=== PATIENT | male | born 1955 | race Two or more races ===

== ENCOUNTER 2019-03-31 16:00 | Emergency (ER) | payer MEDICARE, OTHER ==
[~2019-03-31] VITALS: Ht 175.3 cm; Wt 63.5 kg
--- NOTE | 2019-03-31 16:42 | Emergency Room Report ---
History of Present Illness General Chief Complaint: Hypertension Source: Patient, Medical Record, EMS, Caregiver Present Illness HPI Patient sent in for high blood pressure. He's unable to tolerate medications that have been given to him so far. He states that his blood pressure is high when he gets increased back pain. He states that when he has Valium to help him with muscle spasms that this brings his blood pressure down without difficulty. He denies any fevers, chills, headache, chest pain, nausea, vomiting, diarrhea or dysuria. He does have chronic back pain and feels muscle spasms at this time. He's also unable to tolerate Flexeril. He says the pain in his back is more muscle spasms. He rates the pain to me at 5-7/10. He said that the pain is not radiating down his legs. He denies any increased numbness or weakness. He has a wedge compression fracture in his lumbar spine. Allergies: Coded Allergies: No Known Allergies (Unverified , 03/31/19) Patient History Past Medical History: see triage record Social History: Denies: smoking, alcohol use, drug use Social History Narrative assisted care - has someone with POA Reviewed Nursing Documentation: PMH: Agreed; PSxH: Agreed Nursing Documentation-PMH Past Medical History: No History, Except For Hx Hypertension: Yes - MUSCLE WEAKNESS, Review of Systems All Other Systems: negative except mentioned in HPI Physical Exam Vital Signs Date Time Temp Pulse Resp B/P (MAP) Pulse Ox O2 Delivery O2 Flow Rate FiO2 03/31/19 16:01 98.2 70 20 196/102 (133) 96 Room Air Sp02 EP Interpretation: reviewed, normal General Appearance: alert, GCS 15, non-toxic, mild distress Head: normocephalic, atraumatic Eyes: bilateral eye normal inspection, bilateral eye PERRL ENT: moist mucus membranes Neck: full range of motion - No increased pain in his back with moving his neck , supple Respiratory: lungs clear, normal breath sounds Cardiovascular #1: regular rate, rhythm Cardiovascular #2: 2+ radial (R) Gastrointestinal: normal inspection, normal bowel sounds, non tender, no mass, non-distended Musculoskeletal: gait/station normal, normal range of motion, tender - Lumbar with muscle spasms Neurologic: alert, oriented x3, motor strength/tone normal, DTRs symmetric, sensory intact, speech normal Psychiatric: anxious Reflexes: 2+ knee (R), 2+ knee (L); 1+ ankle (R), 1+ ankle (L) Skin: normal inspection, warm/dry Medical Decision Making Diagnostic Impression: Primary Impression: Labile hypertension Additional Impressions: Exacerbation of chronic back pain Muscle spasm Anxiety with somatization ER Course Patient presents with hypertension. He feels this is related to increased spasms in his back. He'll be evaluated with EKG, chest x-ray and labs. He'll be treated with Ativan and we will follow his blood pressure at this time. EKG without injury. Chest x-ray unremarkable. Labs significant for positive opiates. Patient requesting Valium after Ativan 3 mg total. Still hypertensive. Consider analgesia. Patient sleeping at 20:08 - BP 167/95. Presented to [place]. Considering observation. BP 120/78. Notified Dr. Tamez. Discussed with Dr. Li. She feels patient is able to return to Assisted Living. Patient stable for outpatient observation and treatment. Laboratory Tests Test 03/31/19 17:00 White Blood Count 6.1 K/UL (4.8-10.8) Red Blood Count 5.39 M/UL (4.70-6.10) Hemoglobin 15.6 G/DL (14.2-18.0) Hematocrit 45.9 % (42.0-52.0) Mean Corpuscular Volume 85 FL (80-99) Mean Corpuscular Hemoglobin 28.9 PG (27.0-31.0) Mean Corpuscular Hemoglobin Concent 34.0 G/DL (32.0-36.0) Red Cell Distribution Width 11.6 % (11.6-14.8) Platelet Count 203 K/UL (150-450) Mean Platelet Volume 6.8 FL (6.5-10.1) Neutrophils (%) (Auto) 63.8 % (45.0-75.0) Lymphocytes (%) (Auto) 24.0 % (20.0-45.0) Monocytes (%) (Auto) 7.9 % (1.0-10.0) Eosinophils (%) (Auto) 2.6 % (0.0-3.0) Basophils (%) (Auto) 1.7 % (0.0-2.0) Prothrombin Time 9.7 SEC (9.30-11.50) Prothrombin Time INR 0.9 (0.9-1.1) PTT 28 SEC (23-33) Urine Color Pale yellow Urine Appearance Clear Urine pH 6.5 (4.5-8.0) Urine Specific Delta 1.005 (1.005-1.035) Urine Protein Negative (NEGATIVE) Urine Glucose (UA) Negative (NEGATIVE) Urine Ketones Negative (NEGATIVE) Urine Blood Negative (NEGATIVE) Urine Nitrite Negative (NEGATIVE) Urine Bilirubin Negative (NEGATIVE) Urine Urobilinogen Normal MG/DL (0.0-1.0) Urine Leukocyte Esterase Negative (NEGATIVE) Sodium Level 139 MMOL/L (136-145) Potassium Level 3.9 MMOL/L (3.5-5.1) Chloride Level 103 MMOL/L (98-107) Carbon Dioxide Level 26 MMOL/L (21-32) Anion Gap 10 mmol/L (5-15) Blood Urea Nitrogen 21 mg/dL (7-18) H Creatinine 0.9 MG/DL (0.55-1.30) Estimate Glomerular Filtration Rate > 60 mL/min (>60) Glucose Level 103 MG/DL (74-106) Calcium Level 9.4 MG/DL (8.5-10.1) Total Bilirubin 0.3 MG/DL (0.2-1.0) Aspartate Amino Transferase (AST) 18 U/L (15-37) Alanine Aminotransferase (ALT) 25 U/L (12-78) Alkaline Phosphatase 117 U/L (46-116) H Total Creatine Kinase 39 U/L (26-308) Troponin I 0.000 ng/mL (0.000-0.056) Pro-B-Type Natriuretic Peptide 89 pg/mL (0-125) Total Protein 7.5 G/DL (6.4-8.2) Albumin 3.9 G/DL (3.4-5.0) Globulin 3.6 g/dL Albumin/Globulin Ratio 1.1 (1.0-2.7) Urine Opiates Screen Positive (NEGATIVE) H Urine Barbiturates Screen Negative (NEGATIVE) Phencyclidine (PCP) Screen Negative (NEGATIVE) Urine Amphetamines Screen Negative (NEGATIVE) Urine Benzodiazepines Screen Negative (NEGATIVE) Urine Cocaine Screen Negative (NEGATIVE) Urine Marijuana (THC) Screen Negative (NEGATIVE) EKG Diagnostic Results Rate: normal Rhythm: NSR ST Segments: no acute changes - Left ventricular hypertrophy Rhythm Strip Diag. Results EP Interpretation: yes Rhythm: NSR, no PVC's, no ectopy Chest X-Ray Diagnostic Results Chest X-Ray Diagnostic Results : Chest X-Ray Ordered: Yes # of Views/Limited/Complete: 1 View Indication: Other EP Interpretation: Yes Interpretation: no consolidation, no effusion, no pneumothorax Impression: No acute disease Electronically Signed by: Electronically signed by Daniel Lozano MD Last Vital Signs Date Time Temp Pulse Resp B/P (MAP) Pulse Ox O2 Delivery O2 Flow Rate FiO2 03/31/19 21:30 98.1 95 18 128/70 98 Room Air Status: improved Disposition: ASSISTED LIVING Condition: Serious Daniel Lozano MD Mar 31, 2019 16:42
[2019-03-31] MEDS ORDERED: LORazepam Inj 2mg/ml 1ml IV ONE ×2 (16:45→17:45)
[2019-03-31] MEDS ORDERED: LOSARTAN POTASS50 MG ORAL (17:12)
[2019-03-31] MEDS ORDERED: ASPIRIN325 MG ORAL (17:12)
[2019-03-31] MEDS ORDERED: METHYLDOPA500 MG ORAL (17:12)
[2019-03-31] MEDS ORDERED: CENTRUM COMPLE1 EAC1 PO (17:12)
[2019-03-31] MEDS ORDERED: NORCO 5-325 TA1 EACH ORAL (17:12)
[2019-03-31] MEDS ORDERED: NEXIUM20 M1 ORAL (17:12)
[2019-03-31 17:24] LABS: APPEARANCE,URINE CLEAR; BILIRUBIN, URINE NEGATIVE (NEGATIVE); COLOR,URINE PALE YELLOW; GLUCOSE, URINE (UA) NEGATIVE (NEGATIVE); KETONES,URINE NEGATIVE (NEGATIVE); LEUKOCYTE ESTERASE ,URINE NEGATIVE (NEGATIVE); NITRITE,URINE NEGATIVE (NEGATIVE); PH,URINE 6.5 (4.5-8.0); PROTEIN,URINE NEGATIVE (NEGATIVE); UROBILINOGEN,URINE NORMAL MG/DL (0.0-1.0)
[2019-03-31 17:31] LABS: INR 0.9 (0.9-1.1)
[2019-03-31 17:33] LABS: BASOPHILS % (AUTO) 1.7 % (0.0-2.0); EOSINOPHILS % (AUTO) 2.6 % (0.0-3.0); HEMATOCRIT 45.9 % (42.0-52.0); HEMOGLOBIN 15.6 G/DL (14.2-18.0); MEAN CORPUSCULAR VOLUME 85 FL (80-99); MONOCYTES % (AUTO) 7.9 % (1.0-10.0); NEUTROPHILS % (AUTO) 63.8 % (45.0-75.0); PLATELET COUNT 203 K/UL (150-450); RED BLOOD COUNT 5.39 M/UL (4.70-6.10); RED CELL DISTRIBUTION WIDTH 11.6 % (11.6-14.8); WHITE BLOOD COUNT 6.1 K/UL (4.8-10.8)
[2019-03-31 18:28] LABS: ANION GAP 10 mmol/L (5-15); BLOOD UREA NITROGEN 21 mg/dL (7-18); CALCIUM 9.4 MG/DL (8.5-10.1); CARBON DIOXIDE 26 MMOL/L (21-32); CHLORIDE 103 MMOL/L (98-107); CREATININE 0.9 MG/DL (0.55-1.30); POTASSIUM 3.9 MMOL/L (3.5-5.1); SODIUM 139 MMOL/L (136-145)
[2019-03-31 18:39] LABS: ALANINE AMINOTRANSFERASE 25 U/L (12-78); ALBUMIN 3.9 G/DL (3.4-5.0); ALBUMIN/GLOBULIN RATIO 1.1 (1.0-2.7); ALKALINE PHOSPHATASE 117 U/L (46-116); ASPARTATE AMINO TRANSFERASE 18 U/L (15-37); BILIRUBIN,TOTAL 0.3 MG/DL (0.2-1.0); CREATINE KINASE 39 U/L (26-308)
[2019-03-31 20:00] VITALS: BP 140/78
--- NOTE | 2019-03-31 20:00 | NUR ---
ER Nurse Note: Pt BIBA from SNF d/t high blood pressure. Pt stated he has back pain and is resolved with Valium. Pt a&ox4, VSS, no signs of distress. Was endorsed that pt original BP is >160 / >80. IV established by AM shift. Received report from [facility] for continuity of care. Wll continue to [facility].
[2019-03-31 21:11] VITALS: BP 128/70
[2019-03-31 21:30] VITALS: BP 128/70
--- NOTE | 2019-03-31 21:30 | NUR ---
ER Nurse Note: Spoke with Crista at [facility]; she is aware pt is returning. Pt is asking about Valium, DAVEY notifed and spoke with pt. All paperwork with EMS; all belongings taken with pt. IV DC; site clean and bandaged.
--- NOTE | 2019-04-01 13:12 | Diagnostic Imaging Report ---
Indication: Chest pain Technique: One view of the chest Comparison: none Findings: The heart is enlarged. There is borderline interstitial congestion. The left pleural space is clear. There is slight blunting of the right costophrenic sulcus. The aorta is ectatic and tortuous Impression: Cardiomegaly Borderline interstitial congestion Possible small right pleural effusion
--- NOTE | 2019-04-08 13:58 | Cardiology Report ---
APPROVED REPORT EKG Measurement Heart [id number] Normal sinus rhythm Moderate voltage criteria for LVH, may be normal variant Borderline ECG
== END 2019-03-31 21:30 | disposition home or self-care (01) ==
LOC: EDBD 16:00 → EMR 19:30
DX: I10 Essential (primary) hypertension (principal); G89.29 Other chronic pain; M54.9 Dorsalgia, unspecified; M62.838 Other muscle spasm; F41.9 Anxiety disorder, unspecified
CPT/HCPCS: 36415; 71045; 80053; 80307; 81003; 82550; 83880; 84484; 85025; 85610; 85730; 93005; 96374; 96376; 99284